=== PATIENT | female | born 1960 | race Hispanic/Latino ===

== ENCOUNTER 2018-05-18 13:43 | Emergency (ER) | payer OTHER ==
[2018-05-18] MEDS ORDERED: KETOROLAC TROMETHAMINE 15MG/ML ONE (14:56)
== END 2018-05-18 15:42 | disposition home or self-care (01) ==
LOC: EDH 13:43
DX: F20.9 Schizophrenia, unspecified (principal); M79.10 Myalgia, unspecified site; F32.9 Major depressive disorder, single episode, unspecified; F41.9 Anxiety disorder, unspecified; Z72.0 Tobacco use; Z88.8 Allergy status to other drugs, medicaments and biological substances
CPT/HCPCS: 96372; 99284; J1885